=== PATIENT | female | born 1955 | race African-American/Black ===

== ENCOUNTER 2019-05-06 03:52 | Emergency (ER) | payer BC ==
[2019-05-06 04:01] VITALS: BP 176/91
--- NOTE | 2019-05-06 06:12 | Emergency Department Report ---
ED General Adult HPI - General Chief complaint: Sore Throat Stated complaint: SORE THROAT Time Seen by Provider: 05/06/19 05:45 Source: patient Mode of arrival: Ambulatory Limitations: No Limitations - History of Present Illness -: Gradual Radiation: non-radiation Quality: dull Consistency: constant Improves with: none Worsens with: none Associated Symptoms: denies other symptoms. denies: headaches, syncope, weakness Treatments Prior to Arrival: none - Related Data Allergies Allergy/AdvReac Type Severity Reaction Status Date / Time No Known Allergies Allergy Unverified 02/11/15 08:45 ED Review of Systems ROS: Stated complaint: SORE THROAT Other details as noted in HPI Comment: All other systems reviewed and negative ED Past Medical Hx - Past Medical History Previous Medical History?: Yes - Surgical History Past Surgical History?: No - Social History Smoking Status: Never Smoker Substance Use Type: None ED Physical Exam - General Limitations: No Limitations General appearance: alert, in no apparent distress - Head Head exam: Present: atraumatic, normocephalic - Eye Eye exam: Present: normal appearance, PERRL, EOMI Pupils: Present: normal accommodation - ENT ENT exam: Present: normal exam, mucous membranes moist - Neck Neck exam: Present: normal inspection, full ROM. Absent: meningismus, lymphadenopathy, thyromegaly - Respiratory Respiratory exam: Present: normal lung sounds bilaterally. Absent: respiratory distress, wheezes, rales, rhonchi - Cardiovascular Cardiovascular Exam: Present: regular rate, normal rhythm. Absent: systolic murmur, diastolic murmur, rubs, gallop - GI/Abdominal GI/Abdominal exam: Present: soft, normal bowel sounds - Extremities Exam Extremities exam: Present: normal inspection, normal capillary refill - Back Exam Back exam: Present: normal inspection. Absent: CVA tenderness (R), CVA tenderness (L) - Neurological Exam Neurological exam: Present: alert, oriented X3, CN II-XII intact, normal gait - Psychiatric Psychiatric exam: Present: normal affect, normal mood - Skin Skin exam: Present: warm, dry, intact, normal color. Absent: rash ED Course Vital Signs 05/06/19 03:57 Temperature 97.6 F Pulse Rate 80 Respiratory 18 Rate Blood Pressure 176/91 O2 Sat by Pulse 94 Oximetry ED Medical Decision Making - Radiology Data Radiology results: report reviewed (soft tissue of the neck was no acute processes) - Medical Decision Making No history of immunocompromise. Nontoxic appearance. Patient euvolemic with no trismus. No airway compromise. Able to tolerate PO. Given History and Exam I have low suspicion for this presentation being caused by TRANSPORT DRIVER, RPA, [place], Epiglottitis or Bacterial Tracheitis, EBV, acute HIV, Strep throat. strepTest also negative Rx: Conservative care Disposition: Discharge home with prompt outpatient PCP follow up; return precautions discussed. Critical care attestation.: If time is entered above; I have spent that time in minutes in the direct care of this critically ill patient, excluding procedure time. ED Disposition Clinical Impression: Dysphagia Disposition: DC-01 TO HOME OR SELFCARE Is pt being admited?: No Does the pt Need Aspirin: No Condition: Stable Instructions: Barium Swallow (ED), Esophageal Spasm (ED) Additional Instructions: Soft tissue x-ray of the neck was normal. UA to swallow eat and drink with no complications please follow up with ENT for further evaluation and treatment options involving your neck. Referrals: CRISTY SHEEHAN MD [Primary Care Provider] - 3-5 Days
--- NOTE | 2019-05-06 06:18 | XRay Report ---
Soft tissues of the neck 2 views INDICATION: Dysphagia FINDINGS: Prevertebral soft tissues are unremarkable. The epiglottis is unremarkable. The airway appears patent . There is mild degenerative change at C5-6 IMPRESSION: No acute abnormality Signer Name: Andrew Roca MD Signed: 05/06/2019 6:13 AM Workstation Name: [id number]
== END 2019-05-06 07:12 | disposition home or self-care (01) ==
LOC: ED 03:52
DX: R13.10 Dysphagia, unspecified (principal)
CPT/HCPCS: 70360; 87116; 87430